=== PATIENT | male | born 1950 | race Caucasian/White ===

== ENCOUNTER 2023-11-16 04:49 | Emergency (ER) | payer BC ==
[2023-11-16 05:02] VITALS: BP 172/79; PULSE 85; RESP 18; TEMP 97.6; BMI 38.5
[2023-11-16 05:58] LABS: EPI CELLS 11 /uL (0-25.1); HYALINE CASTS 0 /uL (0-3.1); PH,URINE 5.5 (5.0-8.0); URINE APPEARANCE CLEAR; URINE BACTERIA 3 /uL (0-1359); URINE BILIRUBIN NEGATIVE (NEGATIVE); URINE COLOR YELLOW; URINE GLUCOSE (UA) NEGATIVE (NEGATIVE); URINE KETONE NEGATIVE (NEGATIVE); URINE LEUK ESTERASE NEGATIVE (NEGATIVE); URINE NITRITE NEGATIVE (NEGATIVE); URINE PROTEIN 2+ (NEGATIVE); URINE RBC 9 /uL (0-23.9); URINE UROBILINOGEN 0.2 mg/dL (0.2-1.0); URINE WBC 3 /uL (0-25.8)
[2023-11-16 06:03] LABS: BASO % 1.3 % (0-2.0); EOS % 2.2 % (0-4.5); HEMATOCRIT 43.2 % (35.4-49); LYMPH % 12.1 % (8-40); MCH 26.1 pg (25.7-33.7); MCHC 32.4 g/dl (32.0-35.9); MEAN CELL VOLUME 80.6 fl (80-96); MEAN PLT VOLUME 7.3 fl (7.5-11.1); MONO % 5.4 % (3.8-10.2); PLATELET COUNT 318 10^3/uL (134-434); RBC 5.35 M/mm3 (4.00-5.60); RDW 15.7 % (11.9-15.9); WHITE BLOOD COUNT 9.1 K/mm3 (4.0-10.0)
[2023-11-16 06:25] LABS: POTASSIUM 4.5 mmol/L (3.5-5.1)
[2023-11-16 06:28] LABS: CALCIUM 9.6 mg/dL (8.5-10.1)
[2023-11-16 06:29] LABS: ALBUMIN 3.7 g/dl (3.4-5.0); BLOOD UREA NITROGEN 19.8 mg/dL (7-18)
[2023-11-16 06:32] LABS: CREATININE 1.3 mg/dL (0.55-1.3)
[2023-11-16 06:33] LABS: BILIRUBIN,TOTAL 0.4 mg/dL (0.2-1); TOT PROT 6.8 g/dl (6.4-8.2)
== END 2023-11-16 06:57 | disposition home or self-care (01) ==
LOC: JER 04:49
DX: R10.30 Lower abdominal pain, unspecified (principal); R33.9 Retention of urine, unspecified
CPT/HCPCS: 36415; 80053; 81003; 85025; 87086; 99283-25

== ENCOUNTER 2024-03-24 10:47 | Inpatient (IN) | payer BC ==
[2024-03-24 10:57] VITALS: BMI 43.5
[2024-03-24 11:56] LABS: EOS % 1.6 % (0-4.5); HEMATOCRIT 40.7 % (35.4-49); HEMOGLOBIN 12.8 GM/dL (11.7-16.9); LYMPH % 15.4 % (8-40); MCH 25.3 pg (25.7-33.7); MCHC 31.5 g/dl (32.0-35.9); MEAN CELL VOLUME 80.4 fl (80-96); MONO % 7.9 % (3.8-10.2); NEUT % 74.1 % (42.8-82.8); PLATELET COUNT 344 10^3/uL (134-434); RBC 5.06 M/mm3 (4.00-5.60); RDW 15.7 % (11.9-15.9); WHITE BLOOD COUNT 6.3 K/mm3 (4.0-10.0)
[2024-03-24] MEDS ORDERED: ALBUTEROL SO4 2.5/IPRATROPIUM 0.5 INH SOL 3 ML VIAL.NEB. NEB ONE (11:57)
[2024-03-24] MEDS: ALBUTEROL SO4 2.5/IPRATROPIUM 0.5 INH SOL 3 ML VIAL.NEB. NEB SCH (12:00)
[2024-03-24 12:15] LABS: CHLORIDE 106 mmol/L (98-107); SODIUM 141 mmol/L (136-145)
[2024-03-24 12:18] LABS: BLOOD UREA NITROGEN 18.8 mg/dL (7-18); CO2 34 mmol/L (21-32); GLUCOSE,RANDOM 124 mg/dL (74-106)
[2024-03-24 12:20] LABS: CREATININE 1.3 mg/dL (0.55-1.3)
[2024-03-24 12:21] LABS: SGOT/AST 67 U/L (15-37); SGPT/ALT 33 U/L (13-61)
[2024-03-24 12:22] LABS: BILIRUBIN,TOTAL 0.4 mg/dL (0.2-1)
[2024-03-24 12:23] LABS: ALK PHOS 34 U/L (45-117)
[2024-03-24 12:25] LABS: N-TERMINAL BNP 1997.3 pg/ml (5-125)
[2024-03-24 12:32] LABS: ANION GAP 2 mmol/L (4-13); POTASSIUM 6.4 mmol/L (3.5-5.1)
[2024-03-24] MEDS ORDERED: ACETAMINOPHEN INJECTION 100 ML IVPB ONE (13:03)
[2024-03-24] MEDS ORDERED: LIDOCAINE 4% PATCH TP ONE (13:03)
[2024-03-24] MEDS ORDERED: FUROSEMIDE 40 MG/4 ML INJECTABLE VIAL ONE (13:04)
[2024-03-24] MEDS: FUROSEMIDE 40 MG/4 ML INJECTABLE VIAL IVPUSH ONE (13:22)
[2024-03-24] MEDS: LIDOCAINE 4% PATCH TP ONE (13:22)
[2024-03-24] MEDS: ACETAMINOPHEN 1000 MG/100 ML BAG IVPB ONE (13:22)
[2024-03-24 13:45] LABS: POTASSIUM 4.8 mmol/L (3.5-5.1)
[2024-03-24 13:46] LABS: BLOOD UREA NITROGEN 18.2 mg/dL (7-18); CALCIUM 9.2 mg/dL (8.5-10.1)
[2024-03-24 13:51] LABS: CREATININE 1.2 mg/dL (0.55-1.3)
[2024-03-24] MEDS ORDERED: AZITHROMYCIN IVPB 500 MG/250 ML BAG IVPB ONE (13:51)
[2024-03-24] MEDS ORDERED: CEFTRIAXONE 1 GM/50 ML BAG ONE (13:51)
[2024-03-24] MEDS: CEFTRIAXONE 1,000 MG in DEXTROSE 5%-WATER - 50 ML IVPB ONE (14:16)
[2024-03-24] MEDS ORDERED: ALBUTEROL SO4 HFA INHALER IH PRN (15:00)
[2024-03-24] MEDS ORDERED: PATIENT'S OWN MEDICATION (NON-FORMULARY) (Dulaglutide [Trulicity] 0.75 MG/0.5 ML Pen.Injct SQ SCH (15:00)
[2024-03-24] MEDS: AZITHROMYCIN IVPB 500 MG in DEXTROSE 5%-WATER - 250 ML IVPB ONE (15:21)
[2024-03-24] MEDS: INSULIN ASPART SLIDING SCALE (NOVOLOG) 1 VIAL SQ SCH (16:57)
[2024-03-24] MEDS ORDERED: metFORMIN HCL 500 MG TABLET (FP) ONE (17:07)
[2024-03-24] MEDS: metFORMIN HCL 500 MG TABLET (FP) PO SCH (17:09)
[2024-03-24] MEDS ORDERED: ATORVASTATIN CA 40 MG TABLET (FP) ONE (22:53)
[2024-03-24] MEDS ORDERED: GABAPENTIN 400 MG CAPSULE ONE (22:53)
[2024-03-24] MEDS ORDERED: HEPARIN NA (PORCINE) 5,000 UNITS/ML 1ML VIAL ONE (22:54)
[2024-03-24] MEDS ORDERED: INSULIN (LEVEMIR) 100 UNITS/ML UNITS SQ ONE (22:54)
[2024-03-24] MEDS: HEPARIN NA (PORCINE) 5,000 UNITS/ML 1ML VIAL SQ SCH (23:03)
[2024-03-24] MEDS: INSULIN (LEVEMIR) 100 UNITS/ML UNITS SQ SCH (23:03)
[2024-03-24] MEDS: ATORVASTATIN CA 40 MG TABLET (FP) PO SCH (23:04)
[2024-03-24] MEDS: GABAPENTIN 400 MG CAPSULE PO SCH (23:04)
[2024-03-24] MEDS: LIDOCAINE PATCH REMOVAL MC SCH ×2 (23:04)
[2024-03-25] MEDS: BUDESONIDE/FORMETEROL FUMARATE 160/4.5 mcg INHALER IH SCH (01:08)
[2024-03-25] MEDS: TIOTROPIUM BROMIDE 2.5 MCG (SPIRIVA) RESPIMAT INHALER IH SCH (06:28)
[2024-03-25 08:25] LABS: BASO % 0.4 % (0-2.0); EOS % 0.6 % (0-4.5); HEMOGLOBIN 13.4 GM/dL (11.7-16.9); LYMPH % 11.9 % (8-40); MCH 25.5 pg (25.7-33.7); MCHC 31.8 g/dl (32.0-35.9); MEAN CELL VOLUME 80.2 fl (80-96); MEAN PLT VOLUME 7.6 fl (7.5-11.1); MONO % 8.5 % (3.8-10.2); NEUT % 78.6 % (42.8-82.8); PLATELET COUNT 351 10^3/uL (134-434); RBC 5.24 M/mm3 (4.00-5.60); WHITE BLOOD COUNT 9.2 K/mm3 (4.0-10.0)
[2024-03-25 08:38] LABS: POTASSIUM 4.1 mmol/L (3.5-5.1)
[2024-03-25 08:44] LABS: CALCIUM 9.2 mg/dL (8.5-10.1)
[2024-03-25 08:45] LABS: ALBUMIN 3.4 g/dl (3.4-5.0); MAGNESIUM 1.8 mg/dL (1.8-2.4)
[2024-03-25 08:48] LABS: CREATININE 1.1 mg/dL (0.55-1.3)
[2024-03-25 08:49] LABS: BILIRUBIN,TOTAL 0.5 mg/dL (0.2-1); TOT PROT 6.1 g/dl (6.4-8.2)
[2024-03-25] MEDS: ASPIRIN 81 MG CHEWABLE TABLETS PO SCH (10:03)
[2024-03-25] MEDS: LIDOCAINE 5% TOPICAL PATCH TP SCH (10:03)
[2024-03-25] MEDS: CEFTRIAXONE 1 GM in DEXTROSE 5%-WATER - 50 ML IVPB SCH (10:03)
[2024-03-25] MEDS: amLODIPine BESYLATE 10 MG TABLET (FP) PO SCH (10:03)
[2024-03-25] MEDS: ENALAPRIL MALEATE 10 MG TABLET PO SCH (10:04)
[2024-03-25] MEDS: CLOPIDOGREL BISULFATE 75 MG TABLET (FP) PO SCH (10:04)
[2024-03-25] MEDS: PANTOPRAZOLE SOD 40 MG SUSPENSION PACKET PO SCH (10:04)
[2024-03-25] MEDS: TAMSULOSIN HCL 0.4 MG CAP PO SCH (10:04)
[2024-03-25] MEDS: FENOFIBRIC ACID 135 MG CAP PO SCH (10:05)
[2024-03-25] MEDS: FLUTICASONE PROP 0.05% 16 GM NASAL SPRAY NS SCH (10:10)
[2024-03-25] MEDS: FUROSEMIDE 40 MG/4 ML INJECTABLE VIAL IVPUSH SCH ×2 (10:11→22:26)
[2024-03-25] MEDS: LOPERAMIDE HCL 2 MG CAPSULE PO PRN (12:35)
[2024-03-25] MEDS: AZITHROMYCIN IVPB 250 MG in DEXTROSE 5%-WATER - 250 ML IVPB SCH (15:37)
[2024-03-25] MEDS: ZINC OXIDE 20% TOPICAL OINTMENT 30 GM TUBE TP SCH (19:46)
[2024-03-25] MEDS: BACITRACIN ZINC 15 GM TUBE TOPICAL OINTMENT TP SCH (19:46)
[2024-03-26 08:15] LABS: BASO % 0.8 % (0-2.0); EOS % 2.8 % (0-4.5); HEMOGLOBIN 13.5 GM/dL (11.7-16.9); LYMPH % 15.8 % (8-40); MCH 25.8 pg (25.7-33.7); MCHC 32.2 g/dl (32.0-35.9); MEAN PLT VOLUME 7.7 fl (7.5-11.1); MONO % 10.7 % (3.8-10.2); NEUT % 69.9 % (42.8-82.8); PLATELET COUNT 345 10^3/uL (134-434); RBC 5.24 M/mm3 (4.00-5.60); RDW 15.2 % (11.9-15.9); WHITE BLOOD COUNT 8.3 K/mm3 (4.0-10.0)
[2024-03-26 08:28] LABS: CALCIUM 9.7 mg/dL (8.5-10.1)
[2024-03-26 08:29] LABS: ALBUMIN 3.4 g/dl (3.4-5.0); BLOOD UREA NITROGEN 18.2 mg/dL (7-18); MAGNESIUM 1.8 mg/dL (1.8-2.4)
[2024-03-26 08:32] LABS: CREATININE 1.2 mg/dL (0.55-1.3); PHOSPHOROUS 2.9 mg/dL (2.5-4.9)
[2024-03-26 08:33] LABS: BILIRUBIN,TOTAL 0.6 mg/dL (0.2-1); TOT PROT 6.2 g/dl (6.4-8.2)
[2024-03-26] MEDS: cloNIDine HCL 0.1 MG TABLET PO SCH (12:09)
[2024-03-26] MEDS: APIXABAN 5 MG TABLET PO SCH (13:33)
[2024-03-26] MEDS: INSULIN ASPART SLIDING SCALE (NOVOLOG) 1 VIAL SQ SCH (16:50)
[2024-03-26] MEDS: INSULIN (LEVEMIR) 100 UNITS/ML UNITS SQ SCH (21:48)
[2024-03-27 08:47] LABS: POTASSIUM 3.8 mmol/L (3.5-5.1)
[2024-03-27] MEDS: PATIENT'S OWN MEDICATION (NON-FORMULARY) (Diclofenac Sodium [Voltaren] 100 GM Gel..Gram.) TP SCH (08:54)
[2024-03-27 08:58] LABS: ALBUMIN 3.3 g/dl (3.4-5.0)
[2024-03-27 08:59] LABS: BLOOD UREA NITROGEN 24.4 mg/dL (7-18)
[2024-03-27 09:00] LABS: CALCIUM 9.2 mg/dL (8.5-10.1)
[2024-03-27 09:01] LABS: MAGNESIUM 1.9 mg/dL (1.8-2.4)
[2024-03-27 09:03] LABS: TOT PROT 6.3 g/dl (6.4-8.2)
[2024-03-27 09:07] LABS: CREATININE 1.4 mg/dL (0.55-1.3); PHOSPHOROUS 3.6 mg/dL (2.5-4.9)
[2024-03-27 09:10] LABS: BILIRUBIN,TOTAL 0.6 mg/dL (0.2-1)
[2024-03-28 07:31] LABS: POTASSIUM 3.9 mmol/L (3.5-5.1)
[2024-03-28 07:34] LABS: ALBUMIN 3.2 g/dl (3.4-5.0); CALCIUM 9.5 mg/dL (8.5-10.1)
[2024-03-28 07:35] LABS: BLOOD UREA NITROGEN 31.7 mg/dL (7-18); MAGNESIUM 1.9 mg/dL (1.8-2.4)
[2024-03-28 07:37] LABS: CREATININE 1.3 mg/dL (0.55-1.3); PHOSPHOROUS 4.1 mg/dL (2.5-4.9)
[2024-03-28 07:38] LABS: BILIRUBIN,TOTAL 0.4 mg/dL (0.2-1); TOT PROT 5.7 g/dl (6.4-8.2)
[2024-03-28] MEDS: FUROSEMIDE 40 MG TABLET (FP) PO SCH (10:09)
[2024-03-28 13:17] LABS: ARTERIAL BLOOD GAS BASE EXCESS 6.3 mmol/L (-2-2); ARTERIAL BLOOD GAS PO2 48.6 mmHg (80-100); ARTERIAL BLOOD GAS pH 7.366 (7.350-7.450)
[2024-03-28 13:20] LABS: ALLENS TEST POSITIVE
[2024-03-28] MEDS ORDERED: FUROSEMIDE 40 MG/4 ML INJECTABLE VIAL IVPUSH SCH (14:00)
[2024-03-28] MEDS: MELATONIN 5 MG TABLETS PO ONE (22:34)
[2024-03-29 08:32] LABS: HEMATOCRIT 41.8 % (35.4-49); HEMOGLOBIN 13.3 GM/dL (11.7-16.9); MCH 25.3 pg (25.7-33.7); MCHC 31.9 g/dl (32.0-35.9); MEAN CELL VOLUME 79.3 fl (80-96); MEAN PLT VOLUME 7.4 fl (7.5-11.1); PLATELET COUNT 293 10^3/uL (134-434); RBC 5.27 M/mm3 (4.00-5.60); WHITE BLOOD COUNT 5.9 K/mm3 (4.0-10.0)
[2024-03-29 08:52] LABS: POTASSIUM 4.3 mmol/L (3.5-5.1)
[2024-03-29 08:56] LABS: CALCIUM 9.3 mg/dL (8.5-10.1)
[2024-03-29 08:57] LABS: BLOOD UREA NITROGEN 30.8 mg/dL (7-18)
[2024-03-29 09:00] LABS: CREATININE 1.3 mg/dL (0.55-1.3)
[2024-03-29] MEDS: ERGOCALCIFEROL (VIT D2) 50,000 UNIT (1.25 MG) CAPSULE PO SCH (09:34)
[2024-03-29] MEDS: FUROSEMIDE 40 MG/4 ML INJECTABLE VIAL IVPUSH SCH (13:08)
[2024-03-29] MEDS: MELATONIN 5 MG TABLETS PO ONE (21:57)
[2024-03-30 06:49] LABS: ARTERIAL BLD GAS O2 SATURATION 90.4 % (95-98); ARTERIAL BLOOD GAS BASE EXCESS 8.7 mmol/L (-2-2); ARTERIAL BLOOD GAS PO2 61.9 mmHg (80-100); ARTERIAL BLOOD GAS pH 7.371 (7.350-7.450)
[2024-03-30 06:54] LABS: ALLENS TEST POSITIVE
[2024-03-30 08:41] LABS: POTASSIUM 3.9 mmol/L (3.5-5.1)
[2024-03-30 08:44] LABS: ALBUMIN 3.3 g/dl (3.4-5.0); BLOOD UREA NITROGEN 36.2 mg/dL (7-18)
[2024-03-30 08:45] LABS: CALCIUM 9.2 mg/dL (8.5-10.1)
[2024-03-30 08:46] LABS: MAGNESIUM 1.9 mg/dL (1.8-2.4)
[2024-03-30 08:47] LABS: CREATININE 1.6 mg/dL (0.55-1.3); PHOSPHOROUS 2.6 mg/dL (2.5-4.9)
[2024-03-30 08:48] LABS: TOT PROT 5.8 g/dl (6.4-8.2)
[2024-03-30 08:49] LABS: BILIRUBIN,TOTAL 0.4 mg/dL (0.2-1)
[2024-03-31 06:55] LABS: EOS % 6.9 % (0-4.5); HEMOGLOBIN 12.7 GM/dL (11.7-16.9); LYMPH % 22.4 % (8-40); MCH 25.3 pg (25.7-33.7); MCHC 31.7 g/dl (32.0-35.9); MEAN CELL VOLUME 79.8 fl (80-96); MEAN PLT VOLUME 7.8 fl (7.5-11.1); MONO % 9.8 % (3.8-10.2); NEUT % 59.9 % (42.8-82.8); PLATELET COUNT 280 10^3/uL (134-434); RBC 5.01 M/mm3 (4.00-5.60)
[2024-03-31 07:12] LABS: POTASSIUM 4.2 mmol/L (3.5-5.1)
[2024-03-31 07:15] LABS: CALCIUM 9.1 mg/dL (8.5-10.1)
[2024-03-31 07:16] LABS: ALBUMIN 3.3 g/dl (3.4-5.0); BLOOD UREA NITROGEN 40.4 mg/dL (7-18)
[2024-03-31 07:19] LABS: CREATININE 1.6 mg/dL (0.55-1.3)
[2024-03-31 07:21] LABS: BILIRUBIN,TOTAL 0.6 mg/dL (0.2-1); TOT PROT 6.2 g/dl (6.4-8.2)
[2024-04-01 10:25] LABS: HEMATOCRIT 41.8 % (35.4-49); HEMOGLOBIN 13.3 GM/dL (11.7-16.9); MCHC 31.9 g/dl (32.0-35.9); MEAN CELL VOLUME 78.3 fl (80-96); PLATELET COUNT 279 10^3/uL (134-434); RBC 5.34 M/mm3 (4.00-5.60); WHITE BLOOD COUNT 8.1 K/mm3 (4.0-10.0)
[2024-04-01 10:42] LABS: POTASSIUM 4.1 mmol/L (3.5-5.1)
[2024-04-01 10:46] LABS: ALBUMIN 3.4 g/dl (3.4-5.0); BLOOD UREA NITROGEN 38.1 mg/dL (7-18); CALCIUM 9.6 mg/dL (8.5-10.1)
[2024-04-01 10:48] LABS: CREATININE 1.5 mg/dL (0.55-1.3); PHOSPHOROUS 2.2 mg/dL (2.5-4.9)
[2024-04-01 10:50] LABS: TOT PROT 6.3 g/dl (6.4-8.2)
[2024-04-01 10:56] LABS: BILIRUBIN,TOTAL 0.5 mg/dL (0.2-1)
[2024-04-01] MEDS: FUROSEMIDE 40 MG/4 ML INJECTABLE VIAL IVPUSH ONE (14:42)
[2024-04-01] MEDS: NAPH,MB-DB/K PH,MBDB POWDER PACKET PO ONE (17:21)
[2024-04-01] MEDS: MELATONIN 5 MG TABLETS PO PRN (21:39)
[2024-04-02 06:23] LABS: ARTERIAL BLD GAS O2 SATURATION 92.4 % (95-98); ARTERIAL BLOOD GAS BASE EXCESS 8.8 mmol/L (-2-2); ARTERIAL BLOOD GAS PO2 64.7 mmHg (80-100); ARTERIAL BLOOD GAS pH 7.412 (7.350-7.450)
[2024-04-02 06:27] LABS: ALLENS TEST POSITIVE
[2024-04-02 08:21] LABS: HEMATOCRIT 38.7 % (35.4-49); HEMOGLOBIN 12.7 GM/dL (11.7-16.9); MCH 25.9 pg (25.7-33.7); MCHC 32.8 g/dl (32.0-35.9); MEAN CELL VOLUME 78.7 fl (80-96); MEAN PLT VOLUME 8.4 fl (7.5-11.1); PLATELET COUNT 247 10^3/uL (134-434); RBC 4.91 M/mm3 (4.00-5.60); RDW 15.3 % (11.9-15.9); WHITE BLOOD COUNT 6.6 K/mm3 (4.0-10.0)
[2024-04-02 08:35] LABS: POTASSIUM 3.9 mmol/L (3.5-5.1)
[2024-04-02 08:40] LABS: CALCIUM 9.3 mg/dL (8.5-10.1)
[2024-04-02 08:42] LABS: ALBUMIN 3.1 g/dl (3.4-5.0); BLOOD UREA NITROGEN 46.2 mg/dL (7-18)
[2024-04-02 08:45] LABS: PHOSPHOROUS 3.1 mg/dL (2.5-4.9)
[2024-04-02 08:47] LABS: BILIRUBIN,TOTAL 0.4 mg/dL (0.2-1); CREATININE 1.9 mg/dL (0.55-1.3); TOT PROT 5.7 g/dl (6.4-8.2)
[2024-04-02] MEDS: FUROSEMIDE 20 MG TABLET (FP) PO SCH (11:20)
[2024-04-02] MEDS ORDERED: ATORVASTATIN CA 20 MG TABLET (FP) ONE (22:44)
[2024-04-02 22:51] VITALS: RESP 18
[2024-04-03 17:38] VITALS: BP 146/67; PULSE 64; TEMP 97.7
== END 2024-04-03 15:57 | disposition home or self-care (01) | DRG 291 ==
LOC: JER 10:47 → JERBED 13:03 → J4W 03-25 04:24
PROVIDERS: ADMIT Internal Medicine; ATTEND Internal Medicine
DX: I11.0 Hypertensive heart disease with heart failure (principal); I50.33 Acute on chronic diastolic (congestive) heart failure; J18.9 Pneumonia, unspecified organism; J96.02 Acute respiratory failure with hypercapnia; J96.01 Acute respiratory failure with hypoxia; J44.0 Chronic obstructive pulmonary disease with (acute) lower respiratory infection; E66.2 Morbid (severe) obesity with alveolar hypoventilation; I24.89 Other forms of acute ischemic heart disease; Z68.41 Body mass index [BMI] 40.0-44.9, adult; E11.9 Type 2 diabetes mellitus without complications; I25.10 Atherosclerotic heart disease of native coronary artery without angina pectoris; E78.5 Hyperlipidemia, unspecified; Z95.5 Presence of coronary angioplasty implant and graft; G47.33 Obstructive sleep apnea (adult) (pediatric); N40.1 Benign prostatic hyperplasia with lower urinary tract symptoms; R33.9 Retention of urine, unspecified; R19.7 Diarrhea, unspecified
CPT/HCPCS: 0241U-QW; 36415; 36600; 71045-TC-FY; 71250-TC; 74018-TC-FY; 80048; 80053; 80061; 82803; 82962; 83036; 83735; 83880; 84100; 84443; 84484; 85025; 85027; 86140; 93005; 93010; 93306-TC; 94660; 94761; 97116-GP; 97161-GP; 99285-25; J0131; J1644

== ENCOUNTER 2024-05-06 22:03 | Emergency (ER) | payer BC ==
[2024-05-06 22:09] VITALS: TEMP 98.3; BMI 41.3
[2024-05-06] MEDS ORDERED: ACETAMINOPHEN 325 MG TABLET (FP) ONE (22:47)
[2024-05-06] MEDS: ACETAMINOPHEN 325 MG TABLET (FP) PO ONE (23:00)
[2024-05-06 23:06] LABS: EPI CELLS 2 /uL (0-25.1); HYALINE CASTS 0 /uL (0-3.1); URINE APPEARANCE CLOUDY; URINE BACTERIA >9,000 /uL (0-1359); URINE BILIRUBIN NEGATIVE (NEGATIVE); URINE COLOR YELLOW; URINE GLUCOSE (UA) NEGATIVE (NEGATIVE); URINE KETONE NEGATIVE (NEGATIVE); URINE LEUK ESTERASE 3+ (NEGATIVE); URINE NITRITE POSITIVE (NEGATIVE); URINE PROTEIN 1+ (NEGATIVE); URINE RBC 83 /uL (0-23.9); URINE UROBILINOGEN 0.2 mg/dL (0.2-1.0); URINE WBC 1119 /uL (0-25.8)
[2024-05-06] MEDS ORDERED: CEFTRIAXONE 1 GM/50 ML BAG ONE (23:26)
[2024-05-06 23:50] VITALS: BP 141/72; PULSE 67; RESP 20
== END 2024-05-07 00:01 | disposition home or self-care (01) ==
LOC: JER 22:03
DX: R33.9 Retention of urine, unspecified (principal); R10.30 Lower abdominal pain, unspecified
CPT/HCPCS: 81003; 87086; 87186; 99284-25

== ENCOUNTER 2024-05-10 10:59 | Inpatient (IN) | payer BC ==
[2024-05-10] MEDS ORDERED: MEROPENEM 1 GM VIAL (RESTRICTED TO ID) IVPB ONE (11:17)
[2024-05-10] MEDS: MEROPENEM 1 GM in DEXTROSE 5%-WATER 100 ML IVPB ONE (12:06)
[2024-05-10 12:16] LABS: BASO % 1.3 % (0-2.0); EOS % 4.8 % (0-4.5); HEMATOCRIT 39.8 % (35.4-49); HEMOGLOBIN 12.8 GM/dL (11.7-16.9); LYMPH % 25.9 % (8-40); MCH 25.5 pg (25.7-33.7); MCHC 32.1 g/dl (32.0-35.9); MEAN CELL VOLUME 79.5 fl (80-96); MEAN PLT VOLUME 7.5 fl (7.5-11.1); MONO % 12.6 % (3.8-10.2); NEUT % 55.4 % (42.8-82.8); PLATELET COUNT 311 10^3/uL (134-434); RDW 16.5 % (11.9-15.9)
[2024-05-10 12:17] LABS: URINE APPEARANCE CLOUDY; URINE BILIRUBIN NEGATIVE (NEGATIVE); URINE COLOR YELLOW; URINE GLUCOSE (UA) NEGATIVE (NEGATIVE); URINE KETONE NEGATIVE (NEGATIVE); URINE LEUK ESTERASE 3+ (NEGATIVE); URINE NITRITE NEGATIVE (NEGATIVE); URINE PROTEIN 3+ (NEGATIVE); URINE UROBILINOGEN 0.2 mg/dL (0.2-1.0)
[2024-05-10 12:30] LABS: URINE RBC 834.8 /uL (0-23.9)
[2024-05-10 12:31] LABS: EPI CELLS 3 /uL (0-25.1); HYALINE CASTS 14.9 /uL (0-3.1); URINE BACTERIA 883.4 /uL (0-1359); URINE WBC 953.3 /uL (0-25.8)
[2024-05-10 12:38] LABS: POTASSIUM 5.1 mmol/L (3.5-5.1)
[2024-05-10 12:40] LABS: BLOOD UREA NITROGEN 15.4 mg/dL (7-18); CALCIUM 9.5 mg/dL (8.5-10.1)
[2024-05-10 12:41] LABS: ALBUMIN 3.2 g/dl (3.4-5.0)
[2024-05-10 12:44] LABS: CREATININE 1.3 mg/dL (0.55-1.3)
[2024-05-10 12:45] LABS: BILIRUBIN,TOTAL 0.3 mg/dL (0.2-1); TOT PROT 6.3 g/dl (6.4-8.2)
[2024-05-10] MEDS ORDERED: ACETAMINOPHEN INJECTION 100 ML IVPB ONE (13:04)
[2024-05-10] MEDS: ACETAMINOPHEN 1000 MG/100 ML BAG IVPB ONE (13:37)
[2024-05-10 16:23] VITALS: BMI 42.7
[2024-05-10] MEDS: MEROPENEM 1 GM in DEXTROSE 5%-WATER 100 ML IVPB SCH (17:37)
[2024-05-10] MEDS ORDERED: MEROPENEM 1 GM in DEXTROSE 5%-WATER 100 ML IVPB SCH (18:00)
[2024-05-10] MEDS: ACETAMINOPHEN 325 MG TABLET (FP) PO PRN (19:01)
[2024-05-10] MEDS: GABAPENTIN 400 MG CAPSULE PO SCH (22:05)
[2024-05-10] MEDS: APIXABAN 5 MG TABLET PO SCH (22:05)
[2024-05-10] MEDS: cloNIDine HCL 0.1 MG TABLET PO SCH (22:05)
[2024-05-10] MEDS: TAMSULOSIN HCL 0.4 MG CAP PO SCH (22:05)
[2024-05-10] MEDS: LORATADINE 10 MG TABLET PO SCH (22:05)
[2024-05-10] MEDS: ATORVASTATIN CA 40 MG TABLET (FP) PO SCH (22:05)
[2024-05-10] MEDS: MELATONIN 5 MG TABLETS PO PRN (22:06)
[2024-05-10] MEDS: INSULIN (LEVEMIR) 100 UNITS/ML UNITS SQ SCH (22:07)
[2024-05-10] MEDS: BUDESONIDE/FORMOTEROL FUMARATE 160-4.5 MCG (10.3 GM INHALER) IH SCH (22:35)
[2024-05-11 06:49] LABS: HEMATOCRIT 38.2 % (35.4-49); HEMOGLOBIN 12.2 GM/dL (11.7-16.9); MCH 25.3 pg (25.7-33.7); MCHC 31.9 g/dl (32.0-35.9); MEAN CELL VOLUME 79.2 fl (80-96); MEAN PLT VOLUME 7.3 fl (7.5-11.1); PLATELET COUNT 268 10^3/uL (134-434); RBC 4.83 M/mm3 (4.00-5.60); RDW 16.5 % (11.9-15.9); WHITE BLOOD COUNT 4.9 K/mm3 (4.0-10.0)
[2024-05-11 07:04] LABS: POTASSIUM 4.1 mmol/L (3.5-5.1)
[2024-05-11 07:06] LABS: CALCIUM 9.2 mg/dL (8.5-10.1)
[2024-05-11 07:07] LABS: ALBUMIN 3.1 g/dl (3.4-5.0); BLOOD UREA NITROGEN 14.6 mg/dL (7-18)
[2024-05-11 07:10] LABS: CREATININE 1.2 mg/dL (0.55-1.3)
[2024-05-11 07:11] LABS: BILIRUBIN,TOTAL 0.3 mg/dL (0.2-1); TOT PROT 5.7 g/dl (6.4-8.2)
[2024-05-11] MEDS: FUROSEMIDE 20 MG TABLET (FP) PO SCH (09:18)
[2024-05-11] MEDS: amLODIPine BESYLATE 10 MG TABLET (FP) PO SCH (09:19)
[2024-05-11] MEDS: CLOPIDOGREL BISULFATE 75 MG TABLET (FP) PO SCH (09:19)
[2024-05-11] MEDS: ENALAPRIL MALEATE 10 MG TABLET PO SCH (09:19)
[2024-05-11] MEDS: PANTOPRAZOLE 40 MG TABLET PO SCH (09:19)
[2024-05-11] MEDS: FENOFIBRIC ACID 135 MG CAP PO SCH (10:35)
[2024-05-12 08:53] LABS: BASO % 0.9 % (0-2.0); EOS % 3.3 % (0-4.5); HEMATOCRIT 39.9 % (35.4-49); HEMOGLOBIN 12.7 GM/dL (11.7-16.9); LYMPH % 26.3 % (8-40); MCH 25.2 pg (25.7-33.7); MCHC 31.8 g/dl (32.0-35.9); MEAN CELL VOLUME 79.2 fl (80-96); MEAN PLT VOLUME 7.5 fl (7.5-11.1); MONO % 10.4 % (3.8-10.2); NEUT % 59.1 % (42.8-82.8); PLATELET COUNT 235 10^3/uL (134-434); RBC 5.03 M/mm3 (4.00-5.60); RDW 16.7 % (11.9-15.9); WHITE BLOOD COUNT 5.1 K/mm3 (4.0-10.0)
[2024-05-12 09:10] LABS: POTASSIUM 3.9 mmol/L (3.5-5.1)
[2024-05-12 09:12] LABS: ALBUMIN 3.1 g/dl (3.4-5.0); BLOOD UREA NITROGEN 26.4 mg/dL (7-18); CALCIUM 9.4 mg/dL (8.5-10.1)
[2024-05-12 09:15] LABS: CREATININE 1.7 mg/dL (0.55-1.3)
[2024-05-12 09:17] LABS: BILIRUBIN,TOTAL 0.3 mg/dL (0.2-1)
[2024-05-12 09:18] LABS: TOT PROT 5.7 g/dl (6.4-8.2)
[2024-05-13 09:18] LABS: BASO % 0.6 % (0-2.0); EOS % 2.5 % (0-4.5); HEMATOCRIT 38.3 % (35.4-49); HEMOGLOBIN 12.6 GM/dL (11.7-16.9); MCH 25.3 pg (25.7-33.7); MCHC 32.8 g/dl (32.0-35.9); MEAN CELL VOLUME 76.9 fl (80-96); MEAN PLT VOLUME 7.5 fl (7.5-11.1); MONO % 9.2 % (3.8-10.2); NEUT % 65.7 % (42.8-82.8); PLATELET COUNT 223 10^3/uL (134-434); RBC 4.98 M/mm3 (4.00-5.60); RDW 16.7 % (11.9-15.9); WHITE BLOOD COUNT 5.2 K/mm3 (4.0-10.0)
[2024-05-13 09:57] LABS: BLOOD UREA NITROGEN 30.2 mg/dL (7-18)
[2024-05-13 10:00] LABS: BILIRUBIN,TOTAL 0.4 mg/dL (0.2-1); CREATININE 1.6 mg/dL (0.55-1.3); TOT PROT 5.6 g/dl (6.4-8.2)
[2024-05-14 09:01] LABS: HEMATOCRIT 40.8 % (35.4-49); MCH 24.9 pg (25.7-33.7); MCHC 31.9 g/dl (32.0-35.9); MEAN CELL VOLUME 78.1 fl (80-96); MEAN PLT VOLUME 7.6 fl (7.5-11.1); PLATELET COUNT 223 10^3/uL (134-434); RBC 5.22 M/mm3 (4.00-5.60); RDW 17.1 % (11.9-15.9); WHITE BLOOD COUNT 4.7 K/mm3 (4.0-10.0)
[2024-05-14 09:18] LABS: POTASSIUM 4.3 mmol/L (3.5-5.1)
[2024-05-14 09:25] LABS: CALCIUM 9.2 mg/dL (8.5-10.1)
[2024-05-14 09:26] LABS: BLOOD UREA NITROGEN 35.6 mg/dL (7-18)
[2024-05-14 09:29] LABS: CREATININE 1.7 mg/dL (0.55-1.3)
[2024-05-14] MEDS: FUROSEMIDE 20 MG TABLET (FP) PO SCH (12:27)
[2024-05-14] MEDS: FINASTERIDE 5 MG TABLET (FP) PO SCH (12:27)
[2024-05-15 08:25] LABS: BASO % 0.5 % (0-2.0); EOS % 4.5 % (0-4.5); HEMATOCRIT 36.7 % (35.4-49); HEMOGLOBIN 12.1 GM/dL (11.7-16.9); LYMPH % 34.1 % (8-40); MCH 25.5 pg (25.7-33.7); MCHC 32.9 g/dl (32.0-35.9); MEAN CELL VOLUME 77.6 fl (80-96); MEAN PLT VOLUME 7.7 fl (7.5-11.1); MONO % 9.4 % (3.8-10.2); NEUT % 51.5 % (42.8-82.8); PLATELET COUNT 198 10^3/uL (134-434); RBC 4.73 M/mm3 (4.00-5.60); RDW 16.6 % (11.9-15.9); WHITE BLOOD COUNT 4.9 K/mm3 (4.0-10.0)
[2024-05-15 08:51] LABS: POTASSIUM 4.4 mmol/L (3.5-5.1)
[2024-05-15 08:52] LABS: BLOOD UREA NITROGEN 44.4 mg/dL (7-18); CALCIUM 8.6 mg/dL (8.5-10.1)
[2024-05-15 08:56] LABS: CREATININE 2.2 mg/dL (0.55-1.3)
[2024-05-15] MEDS: SODIUM CHLORIDE 1,000 ML IV SCH (16:52)
[2024-05-15] MEDS: ERTAPENEM SODIUM 1 GM in SODIUM CHLORIDE 50 ML IVPB SCH (17:13)
[2024-05-16 09:14] LABS: BASO % 0.3 % (0-2.0); EOS % 3.5 % (0-4.5); HEMATOCRIT 38.6 % (35.4-49); HEMOGLOBIN 12.3 GM/dL (11.7-16.9); LYMPH % 16.8 % (8-40); MCHC 31.8 g/dl (32.0-35.9); MEAN CELL VOLUME 78.6 fl (80-96); MEAN PLT VOLUME 7.9 fl (7.5-11.1); MONO % 5.8 % (3.8-10.2); NEUT % 73.6 % (42.8-82.8); PLATELET COUNT 198 10^3/uL (134-434); RBC 4.91 M/mm3 (4.00-5.60); RDW 16.5 % (11.9-15.9)
[2024-05-16 09:28] LABS: POTASSIUM 4.5 mmol/L (3.5-5.1)
[2024-05-16 09:29] LABS: BLOOD UREA NITROGEN 41.2 mg/dL (7-18)
[2024-05-16 09:33] LABS: CREATININE 1.6 mg/dL (0.55-1.3)
[2024-05-17 07:02] VITALS: RESP 18
[2024-05-17 10:16] VITALS: BP 137/57; PULSE 74; TEMP 98.4
== END 2024-05-17 15:52 | disposition home health service (06) | DRG 699 ==
LOC: JER 10:59 → UNDOADMOB 11:09 → JERBED 11:09 → INTOOBSV 11:09 → JERBED 15:36 → J7W 15:36 → JERBED 17:17 → J7W 05-12 08:42 → OBSVTOIN 05-13 09:25
PROVIDERS: ADMIT Internal Medicine; ATTEND Nurse Practitioner
DX: T83.511A Infection and inflammatory reaction due to indwelling urethral catheter, initial encounter (principal); I13.0 Hypertensive heart and chronic kidney disease with heart failure and stage 1 through stage 4 chronic kidney disease, or unspecified chronic kidney disease; I50.32 Chronic diastolic (congestive) heart failure; N39.0 Urinary tract infection, site not specified; J45.909 Unspecified asthma, uncomplicated; J44.9 Chronic obstructive pulmonary disease, unspecified; I25.10 Atherosclerotic heart disease of native coronary artery without angina pectoris; E78.5 Hyperlipidemia, unspecified; G47.33 Obstructive sleep apnea (adult) (pediatric); N40.0 Benign prostatic hyperplasia without lower urinary tract symptoms; B96.89 Other specified bacterial agents as the cause of diseases classified elsewhere; E66.01 Morbid (severe) obesity due to excess calories; R33.9 Retention of urine, unspecified; E11.22 Type 2 diabetes mellitus with diabetic chronic kidney disease; Y83.9 Surgical procedure, unspecified as the cause of abnormal reaction of the patient, or of later complication, without mention of misadventure at the time of the procedure; Z95.5 Presence of coronary angioplasty implant and graft; B96.1 Klebsiella pneumoniae [K. pneumoniae] as the cause of diseases classified elsewhere; N18.2 Chronic kidney disease, stage 2 (mild)
CPT/HCPCS: 36415; 74176-TC; 76775-TC; 76856-TC; 80048; 80053; 81003; 82962; 85025; 85027; 87086; 87186; 93005; 93010; 99285-25; G0378; J0131

== ENCOUNTER 2024-09-23 13:29 | Inpatient (IN) | payer BC ==
[2024-09-23 13:48] VITALS: RESP 18; BMI 42.0
[2024-09-23 18:25] LABS: EPI CELLS 2 /uL (0-25.1); HYALINE CASTS 2 /uL (0-3.1); PH,URINE 5.5 (5.0-8.0); URINE APPEARANCE CLOUDY; URINE BACTERIA 652 /uL (0-1359); URINE BILIRUBIN NEGATIVE (NEGATIVE); URINE COLOR YELLOW; URINE GLUCOSE (UA) NEGATIVE (NEGATIVE); URINE KETONE NEGATIVE (NEGATIVE); URINE LEUK ESTERASE 2+ (NEGATIVE); URINE NITRITE NEGATIVE (NEGATIVE); URINE PROTEIN 2+ (NEGATIVE); URINE RBC 790 /uL (0-23.9); URINE UROBILINOGEN 0.2 mg/dL (0.2-1.0); URINE WBC 1287 /uL (0-25.8)
[2024-09-23] MEDS ORDERED: MEROPENEM 1 GM VIAL (RESTRICTED TO ID) IVPB ONE ×2 (20:14→20:18)
[2024-09-23] MEDS: MEROPENEM 1 GM in DEXTROSE 5%-WATER 100 ML IVPB ONE (20:32)
[2024-09-23 20:43] LABS: BASO % 0.5 % (0-2.0); EOS % 4.5 % (0-4.5); HEMATOCRIT 38.1 % (35.4-49); HEMOGLOBIN 12.8 GM/dL (11.7-16.9); LYMPH % 8.9 % (8-40); MCH 27.9 pg (25.7-33.7); MCHC 33.6 g/dl (32.0-35.9); MONO % 11.5 % (3.8-10.2); NEUT % 74.6 % (42.8-82.8); PLATELET COUNT 242 10^3/uL (134-434); RBC 4.59 M/mm3 (4.00-5.60); RDW 14.7 % (11.9-15.9); WHITE BLOOD COUNT 5.8 K/mm3 (4.0-10.0)
[2024-09-23 20:56] LABS: POTASSIUM 4.8 mmol/L (3.5-5.1)
[2024-09-23 20:58] LABS: CALCIUM 9.7 mg/dL (8.5-10.1)
[2024-09-23 20:59] LABS: ALBUMIN 3.4 g/dl (3.4-5.0); BLOOD UREA NITROGEN 27.9 mg/dL (7-18)
[2024-09-23 21:02] LABS: CREATININE 1.5 mg/dL (0.55-1.3)
[2024-09-23 21:04] LABS: BILIRUBIN,TOTAL 0.4 mg/dL (0.2-1); TOT PROT 6.4 g/dl (6.4-8.2)
[2024-09-24] MEDS ORDERED: LIDOCAINE 5% TOPICAL PATCH TP PRN (01:29)
[2024-09-24] MEDS ORDERED: TAMSULOSIN HCL 0.4 MG CAP ONE (01:48)
[2024-09-24] MEDS: TAMSULOSIN HCL 0.4 MG CAP PO SCH (01:56)
[2024-09-24] MEDS ORDERED: MEROPENEM-0.9% SODIUM CHLORIDE 1 GM/50 ML BAG IVPB ONE (01:57)
[2024-09-24] MEDS: MEROPENEM-0.9% SODIUM CHLORIDE 1 GM/50 ML BAG IVPB SCH ×2 (02:03→18:18)
[2024-09-24] MEDS ORDERED: MORPHINE SULFATE 2 MG/ML SYRINGE ONE (02:52)
[2024-09-24] MEDS: morphine CARPU-JECT 4 MG/1 ML DISP.SYRIN IVPUSH SCH (03:05)
[2024-09-24] MEDS: MORPHINE SULFATE 2 MG/ML SYRINGE IVPUSH SCH (03:16)
[2024-09-24] MEDS ORDERED: MORPHINE SULFATE 2 MG/ML SYRINGE IVPUSH PRN (03:18)
[2024-09-24] MEDS: INSULIN ASPART SLIDING SCALE (NOVOLOG) 1 VIAL SQ SCH ×2 (03:24→11:21)
[2024-09-24] MEDS ORDERED: ACETAMINOPHEN INJECTION 100 ML ONE (05:45)
[2024-09-24] MEDS: ACETAMINOPHEN 1000 MG/100 ML BAG IVPB PRN (05:55)
[2024-09-24 07:22] LABS: BASO % 0.6 % (0-2.0); EOS % 2.9 % (0-4.5); HEMATOCRIT 35.4 % (35.4-49); HEMOGLOBIN 12.1 GM/dL (11.7-16.9); LYMPH % 7.1 % (8-40); MCH 28.3 pg (25.7-33.7); MCHC 34.1 g/dl (32.0-35.9); MEAN PLT VOLUME 7.1 fl (7.5-11.1); MONO % 9.8 % (3.8-10.2); NEUT % 79.6 % (42.8-82.8); PLATELET COUNT 229 10^3/uL (134-434); RBC 4.27 M/mm3 (4.00-5.60); RDW 14.4 % (11.9-15.9); WHITE BLOOD COUNT 5.9 K/mm3 (4.0-10.0)
[2024-09-24 07:43] LABS: POTASSIUM 4.2 mmol/L (3.5-5.1)
[2024-09-24 07:47] LABS: CALCIUM 9.5 mg/dL (8.5-10.1)
[2024-09-24 07:48] LABS: ALBUMIN 3.1 g/dl (3.4-5.0); BLOOD UREA NITROGEN 26.9 mg/dL (7-18)
[2024-09-24 07:49] LABS: MAGNESIUM 1.8 mg/dL (1.8-2.4)
[2024-09-24 07:51] LABS: CREATININE 1.4 mg/dL (0.55-1.3); PHOSPHOROUS 3.3 mg/dL (2.5-4.9)
[2024-09-24 07:52] LABS: BILIRUBIN,TOTAL 0.3 mg/dL (0.2-1); TOT PROT 5.8 g/dl (6.4-8.2)
[2024-09-24] MEDS: PANTOPRAZOLE 40 MG TABLET PO SCH (11:22)
[2024-09-24] MEDS: cloNIDine HCL 0.1 MG TABLET PO SCH (11:22)
[2024-09-24] MEDS: INSULIN (LEVEMIR) 100 UNITS/ML UNITS SQ SCH (11:22)
[2024-09-24] MEDS: FINASTERIDE 5 MG TABLET (FP) PO SCH (11:23)
[2024-09-24] MEDS: amLODIPine BESYLATE 10 MG TABLET (FP) PO SCH (11:23)
[2024-09-24] MEDS: CLOPIDOGREL BISULFATE 75 MG TABLET (FP) PO SCH (11:23)
[2024-09-24] MEDS: FUROSEMIDE 40 MG TABLET (FP) PO SCH (11:24)
[2024-09-24] MEDS: ENOXAPARIN NA (PORCINE) 40 MG/0.4 ML DISP.SYRIN SQ SCH (11:24)
[2024-09-24] MEDS: APIXABAN 5 MG TABLET PO SCH (11:24)
[2024-09-24] MEDS: PHENAZOPYRIDINE HCL 100 MG TABLET (FP) PO ONE (11:27)
[2024-09-24] MEDS: ENALAPRIL MALEATE 10 MG TABLET PO SCH (11:38)
[2024-09-24] MEDS: ORGOVYX 120 MG PO SCH (12:09)
[2024-09-24] MEDS: TIOTROPIUM BROMIDE 2.5 MCG (SPIRIVA) RESPIMAT INHALER IH SCH (12:37)
[2024-09-24] MEDS: DULoxetine HCL 20 MG CAPSULE.DR PO SCH (12:37)
[2024-09-24] MEDS: MELATONIN 5 MG TABLETS PO PRN (22:47)
[2024-09-24] MEDS: ATORVASTATIN CA 40 MG TABLET (FP) PO SCH (22:47)
[2024-09-24] MEDS: DIPHENOXYLATE 2.5/ATROPINE.025 1 COMBO TABLET PO ONE (22:47)
[2024-09-25 09:40] LABS: BASO % 1.1 % (0-2.0); EOS % 6.6 % (0-4.5); HEMATOCRIT 36.9 % (35.4-49); LYMPH % 7.3 % (8-40); MCH 27.1 pg (25.7-33.7); MCHC 32.5 g/dl (32.0-35.9); MEAN CELL VOLUME 83.3 fl (80-96); MEAN PLT VOLUME 7.2 fl (7.5-11.1); MONO % 8.4 % (3.8-10.2); NEUT % 76.6 % (42.8-82.8); PLATELET COUNT 230 10^3/uL (134-434); RBC 4.42 M/mm3 (4.00-5.60); RDW 14.5 % (11.9-15.9); WHITE BLOOD COUNT 5.4 K/mm3 (4.0-10.0)
[2024-09-25 10:03] LABS: BLOOD UREA NITROGEN 24.9 mg/dL (7-18); CALCIUM 9.4 mg/dL (8.5-10.1)
[2024-09-25 10:07] LABS: CREATININE 1.3 mg/dL (0.55-1.3)
[2024-09-25 10:08] LABS: BILIRUBIN,TOTAL 0.4 mg/dL (0.2-1); TOT PROT 5.4 g/dl (6.4-8.2)
[2024-09-26] MEDS ORDERED: MEROPENEM-0.9% SODIUM CHLORIDE 1 GM/50 ML BAG IVPB SCH (02:00)
[2024-09-26 08:23] LABS: BASO % 0.4 % (0-2.0); HEMATOCRIT 34.4 % (35.4-49); HEMOGLOBIN 11.6 GM/dL (11.7-16.9); LYMPH % 8.7 % (8-40); MCH 27.7 pg (25.7-33.7); MCHC 33.8 g/dl (32.0-35.9); MEAN CELL VOLUME 81.9 fl (80-96); NEUT % 72.9 % (42.8-82.8); PLATELET COUNT 212 10^3/uL (134-434); RDW 14.5 % (11.9-15.9); WHITE BLOOD COUNT 4.7 K/mm3 (4.0-10.0)
[2024-09-26 08:39] LABS: POTASSIUM 4.1 mmol/L (3.5-5.1)
[2024-09-26 08:40] LABS: CALCIUM 9.6 mg/dL (8.5-10.1)
[2024-09-26 08:42] LABS: ALBUMIN 3.1 g/dl (3.4-5.0); BLOOD UREA NITROGEN 23.9 mg/dL (7-18)
[2024-09-26 08:44] LABS: CREATININE 1.4 mg/dL (0.55-1.3)
[2024-09-26 08:45] LABS: BILIRUBIN,TOTAL 0.3 mg/dL (0.2-1); TOT PROT 5.6 g/dl (6.4-8.2)
[2024-09-27 09:27] LABS: BASO % 0.6 % (0-2.0); EOS % 5.4 % (0-4.5); HEMATOCRIT 37.7 % (35.4-49); HEMOGLOBIN 12.6 GM/dL (11.7-16.9); LYMPH % 8.6 % (8-40); MCH 27.5 pg (25.7-33.7); MCHC 33.4 g/dl (32.0-35.9); MEAN CELL VOLUME 82.3 fl (80-96); MONO % 9.2 % (3.8-10.2); NEUT % 76.2 % (42.8-82.8); PLATELET COUNT 242 10^3/uL (134-434); RBC 4.58 M/mm3 (4.00-5.60); RDW 14.7 % (11.9-15.9); WHITE BLOOD COUNT 5.5 K/mm3 (4.0-10.0)
[2024-09-27 09:52] LABS: POTASSIUM 4.4 mmol/L (3.5-5.1)
[2024-09-27 10:00] LABS: ALBUMIN 3.2 g/dl (3.4-5.0); CALCIUM 9.7 mg/dL (8.5-10.1)
[2024-09-27 10:01] LABS: BLOOD UREA NITROGEN 22.5 mg/dL (7-18)
[2024-09-27 10:03] LABS: CREATININE 1.3 mg/dL (0.55-1.3)
[2024-09-27 10:05] LABS: BILIRUBIN,TOTAL 0.3 mg/dL (0.2-1)
[2024-09-27 15:07] VITALS: BP 132/51; PULSE 65; TEMP 97.1
== END 2024-09-27 19:54 | disposition home or self-care (01) | DRG 690 ==
LOC: JER 13:29 → OBSVTOIN 19:10 → JERBED 19:10 → J6S 09-24 08:56
PROVIDERS: ADMIT Internal Medicine; ATTEND Internal Medicine
DX: N39.0 Urinary tract infection, site not specified (principal); I50.32 Chronic diastolic (congestive) heart failure; I45.2 Bifascicular block; Z68.41 Body mass index [BMI] 40.0-44.9, adult; I11.0 Hypertensive heart disease with heart failure; E78.5 Hyperlipidemia, unspecified; I48.91 Unspecified atrial fibrillation; J45.909 Unspecified asthma, uncomplicated; G47.33 Obstructive sleep apnea (adult) (pediatric); E11.9 Type 2 diabetes mellitus without complications; N40.0 Benign prostatic hyperplasia without lower urinary tract symptoms; I25.10 Atherosclerotic heart disease of native coronary artery without angina pectoris; C61 Malignant neoplasm of prostate; E66.01 Morbid (severe) obesity due to excess calories; Z46.6 Encounter for fitting and adjustment of urinary device
CPT/HCPCS: 36415; 76775-TC; 80053; 81003; 82550; 82962; 83735; 84100; 85025; 87086; 87186; 93005; 93010; 94660; 99285-25; J0131

== ENCOUNTER 2024-10-08 12:59 | Observation (INO) | payer BC ==
[2024-10-08 14:52] LABS: EPI CELLS 7 /uL (0-25.1); HYALINE CASTS 12 /uL (0-3.1); PH,URINE 5.5 (5.0-8.0); URINE APPEARANCE TURBID; URINE BACTERIA 1825 /uL (0-1359); URINE BILIRUBIN NEGATIVE (NEGATIVE); URINE COLOR YELLOW; URINE GLUCOSE (UA) 2+ (NEGATIVE); URINE KETONE NEGATIVE (NEGATIVE); URINE LEUK ESTERASE 3+ (NEGATIVE); URINE NITRITE NEGATIVE (NEGATIVE); URINE PROTEIN TRACE (NEGATIVE); URINE UROBILINOGEN 0.2 mg/dL (0.2-1.0); URINE WBC 3552 /uL (0-25.8)
[2024-10-08 15:42] LABS: URINE RBC 190 /uL (0-23.9); YEAST PRESENT (NEGATIVE)
[2024-10-08 16:34] LABS: BASO % 0.6 % (0-2.0); HEMATOCRIT 38.2 % (35.4-49); HEMOGLOBIN 12.7 GM/dL (11.7-16.9); LYMPH % 7.1 % (8-40); MCH 27.5 pg (25.7-33.7); MCHC 33.3 g/dl (32.0-35.9); MEAN CELL VOLUME 82.5 fl (80-96); MEAN PLT VOLUME 6.7 fl (7.5-11.1); MONO % 7.2 % (3.8-10.2); NEUT % 82.1 % (42.8-82.8); PLATELET COUNT 266 10^3/uL (134-434); RBC 4.63 M/mm3 (4.00-5.60); RDW 14.5 % (11.9-15.9); WHITE BLOOD COUNT 7.1 K/mm3 (4.0-10.0)
[2024-10-08 16:57] LABS: POTASSIUM 4.6 mmol/L (3.5-5.1)
[2024-10-08 16:59] LABS: ALBUMIN 3.6 g/dl (3.4-5.0); CALCIUM 9.8 mg/dL (8.5-10.1)
[2024-10-08 17:03] LABS: CREATININE 1.6 mg/dL (0.55-1.3)
[2024-10-08 17:04] LABS: BILIRUBIN,TOTAL 0.3 mg/dL (0.2-1); TOT PROT 6.4 g/dl (6.4-8.2)
[2024-10-08] MEDS ORDERED: MEROPENEM 1 GM VIAL (RESTRICTED TO ID) IVPB ONE (19:12)
[2024-10-08] MEDS: MEROPENEM 1 GM in DEXTROSE 5%-WATER 100 ML IVPB ONE (19:25)
[2024-10-08] MEDS ORDERED: ACETAMINOPHEN 325 MG TABLET (FP) ONE (22:09)
[2024-10-08] MEDS: ACETAMINOPHEN 325 MG TABLET (FP) PO PRN (22:15)
[2024-10-08] MEDS ORDERED: cloNIDine HCL 0.1 MG TABLET ONE (22:52)
[2024-10-08] MEDS ORDERED: ATORVASTATIN CA 40 MG TABLET (FP) ONE (22:52)
[2024-10-08] MEDS ORDERED: TAMSULOSIN HCL 0.4 MG CAP ONE (22:52)
[2024-10-08] MEDS: ATORVASTATIN CA 40 MG TABLET (FP) PO SCH (23:09)
[2024-10-08] MEDS: APIXABAN 5 MG TABLET PO SCH (23:09)
[2024-10-08] MEDS: TAMSULOSIN HCL 0.4 MG CAP PO SCH (23:09)
[2024-10-08] MEDS: cloNIDine HCL 0.1 MG TABLET PO SCH (23:09)
[2024-10-09 00:54] VITALS: BMI 44.4
[2024-10-09] MEDS: MEROPENEM-0.9% SODIUM CHLORIDE 1 GM/50 ML BAG IVPB SCH ×2 (01:46→14:59)
[2024-10-09] MEDS: INSULIN ASPART SLIDING SCALE (NOVOLOG) 1 VIAL SQ SCH (06:32)
[2024-10-09 07:47] LABS: BASO % 0.6 % (0-2.0); EOS % 2.7 % (0-4.5); HEMATOCRIT 34.5 % (35.4-49); HEMOGLOBIN 11.4 GM/dL (11.7-16.9); LYMPH % 7.9 % (8-40); MCH 27.2 pg (25.7-33.7); MEAN CELL VOLUME 82.5 fl (80-96); MEAN PLT VOLUME 6.9 fl (7.5-11.1); MONO % 10.7 % (3.8-10.2); NEUT % 78.1 % (42.8-82.8); PLATELET COUNT 227 10^3/uL (134-434); RBC 4.19 M/mm3 (4.00-5.60); RDW 14.4 % (11.9-15.9); WHITE BLOOD COUNT 5.9 K/mm3 (4.0-10.0)
[2024-10-09 08:07] LABS: POTASSIUM 4.2 mmol/L (3.5-5.1)
[2024-10-09 08:09] LABS: BLOOD UREA NITROGEN 30.2 mg/dL (7-18); CALCIUM 9.5 mg/dL (8.5-10.1)
[2024-10-09 08:13] LABS: CREATININE 1.8 mg/dL (0.55-1.3)
[2024-10-09] MEDS: FENOFIBRIC ACID 135 MG CAP PO SCH (09:09)
[2024-10-09] MEDS: DULoxetine HCL 20 MG CAPSULE.DR PO SCH (09:09)
[2024-10-09] MEDS: PANTOPRAZOLE 40 MG TABLET PO SCH (09:15)
[2024-10-09] MEDS: amLODIPine BESYLATE 10 MG TABLET (FP) PO SCH (09:15)
[2024-10-09] MEDS: CLOPIDOGREL BISULFATE 75 MG TABLET (FP) PO SCH (09:15)
[2024-10-09] MEDS: FUROSEMIDE 40 MG TABLET (FP) PO SCH (09:15)
[2024-10-09] MEDS: FINASTERIDE 5 MG TABLET (FP) PO SCH (09:16)
[2024-10-09] MEDS ORDERED: ENALAPRIL MALEATE 10 MG TABLET PO SCH (10:00)
[2024-10-09 14:19] LABS: POTASSIUM 4.4 mmol/L (3.5-5.1)
[2024-10-09 14:21] LABS: ALBUMIN 3.4 g/dl (3.4-5.0); BLOOD UREA NITROGEN 25.8 mg/dL (7-18)
[2024-10-09 14:24] LABS: CREATININE 1.6 mg/dL (0.55-1.3)
[2024-10-09 14:26] LABS: BILIRUBIN,TOTAL 0.3 mg/dL (0.2-1); TOT PROT 6.2 g/dl (6.4-8.2)
[2024-10-09] MEDS: SODIUM CHLORIDE 1,000 ML IV SCH (14:46)
[2024-10-09 16:34] LABS: EPI CELLS 10 /uL (0-25.1); HYALINE CASTS 3 /uL (0-3.1); PH,URINE 5.5 (5.0-8.0); URINE APPEARANCE CLEAR; URINE BACTERIA 9 /uL (0-1359); URINE BILIRUBIN NEGATIVE (NEGATIVE); URINE COLOR YELLOW; URINE GLUCOSE (UA) TRACE (NEGATIVE); URINE KETONE NEGATIVE (NEGATIVE); URINE LEUK ESTERASE 2+ (NEGATIVE); URINE NITRITE NEGATIVE (NEGATIVE); URINE PROTEIN TRACE (NEGATIVE); URINE RBC 52 /uL (0-23.9); URINE UROBILINOGEN 0.2 mg/dL (0.2-1.0); URINE WBC 241 /uL (0-25.8)
[2024-10-09 16:50] LABS: YEAST PRESENT (NEGATIVE)
[2024-10-09] MEDS: MELATONIN 1 MG TABLET PO SCH (21:32)
[2024-10-10] MEDS: MEROPENEM-0.9% SODIUM CHLORIDE 1 GM/50 ML BAG IVPB SCH (07:35)
[2024-10-10 07:39] LABS: BASO % 0.6 % (0-2.0); EOS % 4.9 % (0-4.5); HEMATOCRIT 36.6 % (35.4-49); HEMOGLOBIN 12.3 GM/dL (11.7-16.9); LYMPH % 11.2 % (8-40); MCH 28.1 pg (25.7-33.7); MCHC 33.5 g/dl (32.0-35.9); MEAN CELL VOLUME 83.9 fl (80-96); MEAN PLT VOLUME 6.8 fl (7.5-11.1); MONO % 10.6 % (3.8-10.2); NEUT % 72.7 % (42.8-82.8); PLATELET COUNT 245 10^3/uL (134-434); RBC 4.37 M/mm3 (4.00-5.60); RDW 14.5 % (11.9-15.9); WHITE BLOOD COUNT 4.8 K/mm3 (4.0-10.0)
[2024-10-10 08:01] LABS: POTASSIUM 4.8 mmol/L (3.5-5.1)
[2024-10-10 08:16] LABS: BLOOD UREA NITROGEN 24.6 mg/dL (7-18)
[2024-10-10 08:17] LABS: ALBUMIN 3.6 g/dl (3.4-5.0); CALCIUM 10.2 mg/dL (8.5-10.1)
[2024-10-10 08:20] LABS: CREATININE 1.5 mg/dL (0.55-1.3)
[2024-10-10 08:21] LABS: BILIRUBIN,TOTAL 0.5 mg/dL (0.2-1); TOT PROT 6.7 g/dl (6.4-8.2)
[2024-10-10 08:28] LABS: MAGNESIUM 2.2 mg/dL (1.8-2.4)
[2024-10-10] MEDS: oxyCODONE HCL 5 MG TABLET PO ONE (23:45)
[2024-10-11] MEDS: oxyCODONE HCL 5 MG TABLET PO ONE (00:40)
[2024-10-11] MEDS: TAMSULOSIN HCL 0.4 MG CAP PO ONE (03:54)
[2024-10-11] MEDS: morphine SULFATE 4 MG/ML VIAL IVPB ONE (03:55)
[2024-10-11 06:50] VITALS: RESP 18
[2024-10-11] MEDS: LIDOCAINE HCL 5% TOP OINTMENT 50 GM TUBE TP ONE (11:43)
[2024-10-11 12:27] LABS: BASO % 0.8 % (0-2.0); EOS % 4.2 % (0-4.5); HEMATOCRIT 37.3 % (35.4-49); HEMOGLOBIN 12.3 GM/dL (11.7-16.9); LYMPH % 10.7 % (8-40); MCH 27.3 pg (25.7-33.7); MCHC 32.9 g/dl (32.0-35.9); MEAN CELL VOLUME 83.1 fl (80-96); MEAN PLT VOLUME 6.9 fl (7.5-11.1); MONO % 10.6 % (3.8-10.2); NEUT % 73.7 % (42.8-82.8); PLATELET COUNT 244 10^3/uL (134-434); RBC 4.49 M/mm3 (4.00-5.60); RDW 14.5 % (11.9-15.9); WHITE BLOOD COUNT 4.3 K/mm3 (4.0-10.0)
[2024-10-11 12:53] LABS: POTASSIUM 4.3 mmol/L (3.5-5.1)
[2024-10-11 12:58] LABS: ALBUMIN 3.6 g/dl (3.4-5.0); BLOOD UREA NITROGEN 22.8 mg/dL (7-18); CALCIUM 9.6 mg/dL (8.5-10.1); MAGNESIUM 2.1 mg/dL (1.8-2.4)
[2024-10-11 13:01] LABS: CREATININE 1.3 mg/dL (0.55-1.3)
[2024-10-11 13:03] LABS: BILIRUBIN,TOTAL 0.4 mg/dL (0.2-1); TOT PROT 6.3 g/dl (6.4-8.2)
[2024-10-11] MEDS ORDERED: ACETAMINOPHEN 1000 MG/100 ML BAG IVPB PRN (13:09)
[2024-10-11] MEDS: PHENAZOPYRIDINE HCL 100 MG TABLET (FP) PO SCH (14:32)
[2024-10-11 14:56] VITALS: BP 124/57; PULSE 57; TEMP 97.5
== END 2024-10-11 18:42 | disposition home or self-care (01) ==
LOC: JER 12:59 → JERBED 15:32 → J7W 23:07
PROVIDERS: ADMIT Internal Medicine
PROC: 3E013VG Introduction of Insulin into Subcutaneous Tissue, Percutaneous Approach (ICD-10-PCS; principal; 2024-10-08)
PROC: 3E03329 Introduction of Other Anti-infective into Peripheral Vein, Percutaneous Approach (ICD-10-PCS; 2024-10-08)
PROC: 3E033NZ Introduction of Analgesics, Hypnotics, Sedatives into Peripheral Vein, Percutaneous Approach (ICD-10-PCS; 2024-10-08)
PROC: 3E0337Z Introduction of Electrolytic and Water Balance Substance into Peripheral Vein, Percutaneous Approach (ICD-10-PCS; 2024-10-08)
DX: I25.10 Atherosclerotic heart disease of native coronary artery without angina pectoris (principal); E11.9 Type 2 diabetes mellitus without complications; J45.909 Unspecified asthma, uncomplicated; G47.33 Obstructive sleep apnea (adult) (pediatric); I10 Essential (primary) hypertension; Z99.81 Dependence on supplemental oxygen; I48.91 Unspecified atrial fibrillation; E66.01 Morbid (severe) obesity due to excess calories; Z87.440 Personal history of urinary (tract) infections; Z87.891 Personal history of nicotine dependence; D64.9 Anemia, unspecified
CPT/HCPCS: 36415; 76775-TC; 80048; 80053; 81003; 82962; 83735; 85025; 87086; 87186; 96361; 96365; 96366; 96372; 96375; 99285-25; G0378